=== PATIENT | male | born 1980 | race Caucasian/White ===

== ENCOUNTER 2017-12-21 15:53 | Emergency (ER) | payer OTHER, SELFPAY ==
[2017-12-21 15:54] VITALS: BP 128/88; PULSE 65; RESP 17; TEMP 37.1; O2SAT 99; BMI 33.0
--- NOTE | 2017-12-21 16:25 | ED.DCSUM_ITS ---
- ER Visit Summary Date of Service: 12/21/17 Chief Complaint: Left fifth digit laceration History of Present Illness: The patient is a 37 M [id number], circular saw injury to left fifth digit 1 hour prior to arrival. Tetanus unknown, no anticoagulation medications. No paresthesias. Bleeding was controlled prior to arrival. No past medical history. Physical Examination: General: Alert and oriented ?3, no acute distress HEENT: Normocephalic, atraumatic. Moist mucosa membranes Neck: supple, nontender. Cardiovascular: Regular rate and rhythm, no murmurs Respiratory: Normal breath sounds, symmetric, no distress Abdomen: Soft, nontender, nondistended Extremities: Left fifth digit: 3.5 cm linear laceration across the PIP and dorsal middle phalanx of the pinky finger. Neuro: no focal neurological deficits. Test Results: Left fifth finger x-ray: No bony involvement. Emergency Department Course and Treatment: X-ray negative. Tetanus updated. Patient's laceration was pared in sterile conditions. I did use a Tourni-cot after numbing, thorough evaluation of the wound, did note subcutaneous injury, the extensor tendon was visualized, there is no injuries through range of motion. Stents are mechanism is intact. Total of 2 horizontal sutures and 2 simple fibrosis sutures were placed. AlumaFoam splint was placed by nursing. Patient will follow-up as an outpatient for suture removal. Wound care discussed. Treatment Plan: [] Disposition: Discharge Impression: 1. Left fifth digit laceration 3.5 cm 2. Tetanus update This note was generated with [employer] dictation software. It may contain incorrect words, spelling, and punctuation that were not noted in review of the chart prior to signing ED Disposition - Plan for ED Patient: Disposition: Home or Assisted Living Chief Complaint: Laceration Diagnosis: Finger laceration Instructions: ED Laceration Hand Referrals: Care Physician,No Primary [Primary Care Provider] - Makeda Cheek [NON-STAFF] - 10-14 Days suture removal
[2017-12-21] MEDS: Diphth,Pertuss(Acell),Tet Vac 0.5 ML Vial IM (16:33)
--- NOTE | 2017-12-21 16:45 | RAD_ITS ---
STUDY: X-RAY - LEFT HAND, ATTENTION PINKY FINGER REASON FOR EXAM: Male, 37 years old. Evaluation of laceration of the left pinky finger. TECHNIQUE: 3 view(s) of the finger were obtained. COMPARISON: None. FINDINGS: Normal metacarpal head. Normal metacarpophalangeal joint. Normal proximal phalanx. Normal middle phalanx. Normal distal phalanx. Normal proximal interphalangeal joint. There is mild degenerative arthrosis of the distal interphalangeal joint. There appears to be sequela of a chip fracture arising from the tuft of the distal phalanx of the ring finger. This is probably not acute. RAD/Finger(s) Min 2 Views IMPRESSION: No radiographic evidence for acute fracture. If there is still clinical concern for acute fracture, follow-up radiographs in 7-10 days maybe helpful in evaluating a healing radiographically occult fracture. Electronically Signed: Saima Whitfield MD at 17:05 EST , Service support ,
[2017-12-21] MEDS: Bupivacaine 0.25% 30 ML Vial INFILT (17:35)
[2017-12-21 18:05] VITALS: BP 138/59; PULSE 64; RESP 15; O2SAT 97
== END 2017-12-21 18:06 | disposition home or self-care (01) ==
PROVIDERS: Emergency Provider Emergency Medicine
DX: S61.217A Laceration without foreign body of left little finger without damage to nail, initial encounter (principal); Z23 Encounter for immunization; W29.3XXA Contact with powered garden and outdoor hand tools and machinery, initial encounter; Y93.89 Activity, other specified; Y92.89 Other specified places as the place of occurrence of the external cause; Y99.8 Other external cause status
CPT/HCPCS: 12002; 73140; 90471; 90715; 99283

== ENCOUNTER → 2020-06-24 | Outpatient (CLI) | payer OTHER, SELFPAY | END | disposition home or self-care (01) | LOC: MTDU 17:25 | PROVIDERS: Referring Provider Nurse Practitioner Family; Visit Provider Nurse Practitioner Family | DX: Z20.828 Contact with and (suspected) exposure to other viral communicable diseases (principal) | CPT/HCPCS: 87635; 94799; U0003 ==

== ENCOUNTER 2022-10-18 12:37 | Emergency (ER) | payer OTHER, SELFPAY ==
[2022-10-18 12:38] VITALS: BP 160/94; PULSE 126; RESP 18; TEMP 35.9; O2SAT 96; BMI 31.5
--- NOTE | 2022-10-18 12:48 | EX.ED.DYSGE1 ---
HPI History of Present Illness Chief Complaint: Cough Informant: patient Onset/Context/Timing Onset: Days Context: Gradual Onset Current Severity: Moderate Maximum Severity: Moderate Narrative Narrative: Patient presents secondary to cough and URI symptoms. Patient reported got sick about 10 days ago when her daughter became ill. Over the past 3 days has gotten significantly worse. He has had subjective fever and chills at home. He has chest congestion but is not producing any sputum with his cough. He has not taken anything for his cough. PFSH PFSH Medical History no medical history no medical history Home Medications dicyclomine 10 mg capsule 20 mg PO TIDAC ##20 10/27/15 [Rx Last Taken Unknown] codeine 10 mg-guaifenesin 100 mg/5 mL oral liquid (Guaifenesin AC) 10 ml PO Q6H PRN cough #200 mL 10/18/22 [Rx Last Taken Unknown] Allergy/AdvReac Type Severity Reaction Status Date / Time No Known Allergies Allergy Verified 10/18/22 12:38 Surgical History no surgical history no surgical history Social History Smoking Status: Never smoker ROS ROS ED Constitutional Constitutional ED: Reports chills, fever(s) and subjective Eyes Eyes: Denies change in vision or discharge from eye(s) ENT ENT ED: Denies discharge from eye(s), rhinorrhea or sore throat Cardiovascular Cardiovascular: Denies chest pain or palpitations Respiratory/Chest Respiratory/Chest: Reports cough and dyspnea; Denies sputum Gastrointestinal Gastrointestinal: Denies abdominal pain, diarrhea, nausea or vomiting Genitourinary Genitourinary ED: Denies dysuria Musculoskeletal Musculoskeletal: Denies back pain or extremity pain Integumentary Denies Abrasions or rash Neurologic Neurologic: Denies headache(s) or weakness Psychiatric Psychiatric: Denies anxiety or depression Allergic/Immunologic Allergic/Immunologic ED: Denies lip swelling or urticaria EXAM Physical Exam Const Vital Signs: 10/18/22 12:38 Temperature 96.6 F L Temperature Source Temporal Pulse Rate 126 H Respiratory Rate 18 Blood Pressure 160/94 H Blood Pressure Mean 116 Pulse Ox 96 Oxygen Delivery Method Room Air Positive well nourished and well developed General Appearance ED: well developed HEENT Reports normocephalic and head/scalp atraumatic Eyes PERRL and EOMs intact bilaterally Neck supple Chest Wall inspection of chest normal and palpation of chest normal Resp normal respiratory effort and clear to auscultation bilaterally Cardio regular rate and regular rhythm GI non-tender Palpation: soft Extremity normal to inspection Neuro oriented x3 and no sensory deficits noted Sensorium / Orientation: alert Motor Exam: strength 5/5 throughout Psych mental status grossly normal Skin no rashes or lesions noted MDM MDM MDM Narrative Medical decision making narrative: Patient was given a dose of Robitussin-AC. Two-view chest x-ray obtained along with swab for COVID and influenza. Radiography Diagnostic Testing: Clinical Impression(s) from Imaging Studies Chest X-Ray 10/18/22 13:14 IMPRESSION: Normal x-ray examination of the chest. Electronically Signed: Dorian Mcleod MD at 13:35 EST , Treatment and Re-Evaluation Narrative: Chest x-ray per my interpretation reveals no focal infiltrate. Radiology interpretation is reviewed and agrees. Swab for COVID and influenza is negative. On repeat evaluation heart rate is 108 and pulse ox is 94% on room air. Patient does feel his cough is improved with the Robitussin. Prescription will be provided. He will continue supportive care. Discharge Plan Triage Chief Complaint: Cough ED Provider: Carol Hernandes Dx/Rx/DC Orders Clinical Impression: Viral URI with cough Instructions: ED Bronchitis, No Antibiotic (Adult) Prescriptions: New codeine-guaifenesin [Guaifenesin AC] 10-100 mg/5 mL liquid 10 ml PO Q6H PRN (Reason: cough) Qty: 200 0RF No Action dicyclomine 10 MG capsule 20 mg PO TIDAC Qty: 20 0RF Rx Instructions: causes drowsiness Primary Care Provider: Care Physician,No Primary Referrals: Vilma Ulloa MD [Med Staff - [facility]] - As Needed Care Physician,No Primary [Primary Care Provider] - Disposition Disposition: Home, Self Care
[2022-10-18] MEDS: guaiFENesin/Codeine 5 ML UDC 10 ML PO (13:07)
--- NOTE | 2022-10-18 13:14 | RAD_ITS ---
STUDY: X-RAY CHEST REASON FOR EXAM: Male, 41 years old. cough TECHNIQUE: PA and lateral views of the chest. COMPARISON: None. FINDINGS: The lungs are clear and expanded. There is no demonstrated pleural abnormality. Normal size heart. Normal mediastinum and tico. Normal visualized pulmonary arteries. Normal visualized aortic arch and descending thoracic aorta. Normal visualized thoracic spine. Normal visualized ribs, clavicles, and shoulders. There is no demonstrated abnormality of the visualized soft tissue structures of the upper abdomen. RAD/Chest PA and Lateral IMPRESSION: Normal x-ray examination of the chest. Electronically Signed: Dorian Mcleod MD at 13:35 EST ,
== END 2022-10-18 14:02 | disposition home or self-care (01) ==
PROVIDERS: Emergency Provider Emergency Medicine; Visit Provider Emergency Medicine
DX: J06.9 Acute upper respiratory infection, unspecified (principal); Z20.822 Contact with and (suspected) exposure to COVID-19
CPT/HCPCS: 71046; 87428; 99283

== ENCOUNTER 2024-01-10 10:12 | Emergency (ER) | payer OTHER, SELFPAY ==
[2024-01-10 10:13] VITALS: BP 111/78; PULSE 101; RESP 22; TEMP 36.6; O2SAT 94; BMI 34.3
--- NOTE | 2024-01-10 10:22 | EKG12_ITS ---
Test Reason : SOB Blood Pressure : / mmHG Vent. Rate : 086 BPM Atrial Rate : 086 BPM P-R Int : 136 ms QRS Dur : 084 ms QT Int : 394 ms P-R-T Axes : 038 -05 015 degrees QTc Int : 471 ms Normal sinus rhythm Normal ECG Confirmed by CHARLY LAU, JORY ([id number]), news videotape editor SPARKLE MICHEL ([id number]) on 01/11/2024 7:57:50 AM Referred By: Confirmed By:JORY PARKS MD
--- NOTE | 2024-01-10 10:23 | EDS_ITS ---
HPI History of Present Illness Chief Complaint: Allergic Reaction Detail of Chief Complaint: Concern for allergic reaction Informant: patient Narrative Narrative: Patient presents to the emergency department with complaint of vomiting and d iarrhea and a rash that started while at work today. Patient states that he woke up feeling fine. Relatively sudden onset of feeling like he was going to pass out. Developed chills and sweats suddenly and started vomiting. He also developed diarrhea. His was sick 3 days ago with vomiting for about 6 hours that then resolved. Patient describing sensation like having a hard time breathing. Denies significant chest pain or abdominal pain. Denies urinary symptoms. PFSH PFSH Home Medications dicyclomine 10 mg capsule 20 mg (2 x 10 mg) PO TIDAC ##20 10/27/15 [Rx Last Taken Unknown] codeine 10 mg-guaifenesin 100 mg/5 mL oral liquid (Guaifenesin AC) 10 ml PO Q6H PRN cough #200 mL 10/18/22 [Rx Last Taken Unknown] ondansetron 4 mg disintegrating tablet 4 mg PO Q8H PRN PRN Nausea #10 tabs 01/10/24 [Rx Last Taken Unknown] Allergy/AdvReac Type Severity Reaction Status Date / Time No Known Allergies Allergy Verified 01/10/24 10:15 Social History Smoking Status: Never smoker ROS ROS ED ROS Narrative Near syncope Review of Systems ROS Unobtainable: other Constitutional Constitutional ED: Reports chills, lethargy and sweats; Denies fever(s) or weight loss Eyes Eyes: Denies blurry vision, change in vision or diplopia ENT ENT ED: Denies rhinorrhea or sore throat Cardiovascular Cardiovascular: Reports chest pain and racing heartbeat; Denies orthopnea Respiratory/Chest Respiratory/Chest: Reports dyspnea and dyspnea on exertion; Denies cough, orthopnea or sputum Gastrointestinal Gastrointestinal: Reports diarrhea, nausea and vomiting; Denies abdominal pain Genitourinary Genitourinary ED: Denies dysuria, hematuria or urinary frequency Musculoskeletal Musculoskeletal: Denies arthralgias, back pain, myalgias or neck pain Integumentary Denies abscess, Abrasions or rash Neurologic Neurologic: Denies headache(s) or weakness Psychiatric Psychiatric: Denies anxiety, depression or suicidal thoughts Endocrine Endocrinology: Denies polydipsia, polyphagia or polyuria Hematologic/Lymphatic Hematologic/Lymphatic: Denies easy bleeding, easy bruising or lymphadenopathy Allergic/Immunologic Allergic/Immunologic ED: Denies mouth swelling, tongue swelling or urticaria EXAM Physical Exam Const Vital Signs: 01/10/24 10:13 01/10/24 11:00 01/10/24 12:00 Temperature 97.8 F Temperature Source Temporal Pulse Rate 101 H 91 87 Respiratory Rate 22 H 16 20 H Blood Pressure 111/78 121/97 H 147/125 H Blood Pressure Mean 89 106 134 Pulse Ox 94 95 98 Oxygen Delivery Method Room Air Room Air Room Air Positive well nourished and well developed General Appearance ED: well developed and NAD HEENT Reports TM's clear and moist mucous membranes normocephalic and atraumatic; Negative for trauma or tenderness Tympanic Membrane ED: Yes TM's clear Eyes PERRL and EOMs intact bilaterally General Eye ED: Negative for pale conjunctiva or scleral icterus Neck no lymphadenopathy, supple and no JVD General: Negative for tenderness Chest Wall inspection of chest normal and palpation of chest normal Chest: Negative for tenderness Resp normal respiratory effort and clear to auscultation bilaterally Effort and Inspection: Negative for respiratory distress or pain with movement Auscultation: Negative for rhonchi, wheezes or diminished lung sounds Cardio regular rate, regular rhythm, S1 normal heart sound, S2 normal heart sound and no murmurs Peripheral Pulses: pulses 2+ throughout GI normal to inspection, nondistended, normoactive bowel sounds, soft to palpation, non-tender, non-distended and no masses Back/Spine no CVA tenderness and no thoracic nor lumbar tenderness Extremity normal to inspection General Extremety ED: Negative for edema General Extremity: Negative for edema Neuro oriented x3, CN's II-XII intact bilaterally, no sensory deficits noted and gait normal Sensorium / Orientation: awake, alert, oriented to person, oriented to place and oriented to time Motor Exam: strength 5/5 throughout and strength abnormal Psych mental status grossly normal Skin no wounds Skin Narrative: Patient with fine erythematous rash that is diffuse throughout the body. Minimally pruritic. Fine erythematous and slightly raised. Suspect viral pattern. MDM MDM MDM Narrative Medical decision making narrative: Patient presents with sudden onset of vomiting and diarrhea as well as chills. Symptoms started while at work. He became pale and felt like he was going to pass out. He denies chest pain or recent illness otherwise. Denies sick contacts. IV line established on arrival. Patient was medicated with Zofran and given a liter of ascitic fluid bolus. CBC with differential obtained showed a white count of 18.5 which I suspect is likely reactive from retching and vomiting. Hemoglobin 17.8 and platelet count was 259. Chemistries were unremarkable other than an elevated BUN of 13 and creatinine of 1.47. His blood glucose was elevated at 333. Patient is not a known diabetic. His AST is 53 and his ALT 79. Troponin was normal at 9. Alcohol was negative. COVID flu RSV testing was negative. This point he had no further vomiting and clinically feels significant improved. I suspect likely viral gastroenteritis as etiology of his symptoms. Advised him to follow-up with Dr. Azul regarding his elevated blood glucose to have formal testing for diabetes type 2. Patient advised to push fluids. I will write him a prescription for Zofran. Advised to use Imodium as needed for the diarrhea. Patient to return if persistent vomiting, diarrhea, dehydration, abdominal pain, or condition should worsen anyway. Lab Data Attestation: I reviewed the patient's lab results. Labs: Laboratory Results - last 24 hr 01/10/24 10:30 WBC 18.5 H RBC 5.69 Hgb 17.8 H Hct 53.3 MCV 93.7 MCH 31.3 MCHC 33.4 RDW Std Deviation 41.3 RDW Coeff of Isaiah 11.9 Plt Count 259 MPV 10.2 Immature Gran % (Auto) 0.900 Neut % (Auto) 86.2 H Lymph % (Auto) 7.7 L [place] % (Auto) 4.4 Eos % (Auto) 0.2 Baso % (Auto) 0.6 Absolute Neuts (auto) 16.0 H Absolute Lymphs (auto) 1.43 Nucleated RBC % 0 Sodium 132 L Potassium 5.2 H Chloride 99 Carbon Dioxide 22.0 Anion Gap 11 BUN 13 Creatinine 1.47 H Estim Creat Clear Calc 79.11 Est GFR (MDRD) Af Amer 67 Est GFR (MDRD) Non-Af 55 L BUN/Creatinine Ratio 8.8 L Glucose 333 H Calcium 8.8 Total Bilirubin 0.70 AST 53 H ALT 79 H Alkaline Phosphatase 92 Troponin I High Sens 9 Total Protein 7.7 Albumin 3.5 Globulin 4.2 Albumin/Globulin Ratio 0.8 L Ethyl Alcohol < 3.0 EKG Initial EKG: Attestation: I personally reviewed and interpreted this EKG as follows: Comments: Sinus rhythm with rate of 86 bpm with no acute ST segment changes Discharge Plan Triage Chief Complaint: Allergic Reaction ED Provider: Linda Mcdonald Dx/Rx/DC Orders Clinical Impression: Viral gastroenteritis, Hyperglycemia, Vaso-vagal reaction Instructions: ED Fainting, Vagal Reaction, ED Gastroenteritis, Viral (Adult), ED Hyperglycemia New Poss Diabetes Prescriptions: New ondansetron [ondansetron] 4 mg tablet,disintegrating 4 mg PO Q8H PRN PRN (Reason: Nausea) Qty: 10 0RF No Action dicyclomine 10 MG capsule 20 mg PO TIDAC Qty: 20 0RF Rx Instructions: causes drowsiness codeine-guaifenesin [Guaifenesin AC] 10-100 mg/5 mL liquid 10 ml PO Q6H PRN (Reason: cough) Qty: 200 0RF Primary Care Provider: Lorenzo Azul Referrals: Care Physician,No Primary [Non-Staff] - Activity Restrictions/Additional Instructions: Follow-up with Dr. Azul regarding elevated blood sugars to evaluate for diabetes type 2. Disposition Disposition: Home, Self Care
--- NOTE | 2024-01-10 10:26 | NURSING ---
NO OLD EKGS
[2024-01-10 10:42] LABS: Absolute Lymphocyte Count 1.43 X10^3/uL (0.83-4.51); Basophil# 0.11 X10^3/uL; Basophil% 0.6 % (0-1); Eosinophil# 0.04 X10^3/uL; Eosinophils% 0.2 % (0-5); Hematocrit 53.3 % (40-54); Hemoglobin 17.8 g/dL (13.0-16.5); Lymphocyte # 1.43 X10^3/ul (0.83-4.51); Lymphocyte % 7.7 % (19-41); Mean Corp Hgb Conc 33.4 g/dL (32-36); Mean Corpuscular Hgb 31.3 pg (27.0-32.0); Mean Corpuscular Volume 93.7 fL (80-94); Mean Platelet Vol. 10.2 fl (6.2-12.0); Monocyte# 0.82 X10^3/uL; Monocyte% 4.4 % (0-10); NRBC Flagged by Analyzer 0 % (0-5); Neutrophil # 15.97 X10^3/uL (2.7-7.7); Neutrophil % 86.2 % (47-70); Platelet Count 259 K/mm3 (150-450); RBC Distribution Width CV 11.9 % (11.6-14.6); RBC Distribution Width SD 41.3 fl (35.1-43.9); Red Blood Count 5.69 M/mm3 (4.6-6.2); White Blood Count 18.5 K/mm3 (4.4-11.0)
[2024-01-10 10:49] LABS: Alcohol, Blood (Medical)-Serum < 3.0 mg/dL
[2024-01-10] MEDS: 0.9% Normal Saline (1000mL) 1,000 ML 1000 ML IV (10:54)
[2024-01-10] MEDS: Ondansetron 4 MG/2 ML Vial IV (10:54)
[2024-01-10 10:57] LABS: ALB/GLOB Ratio 0.8 RATIO (0.9-2.4); AST(SGOT) 53 U/L (15-37); Alanine Aminotransfer ALT/SGPT 79 U/L (16-61); Albumin, Serum 3.5 g/dL (3.2-5.0); Alkaline Phosphatase 92 U/L (45-117); Anion Gap 11 (5-15); BUN 13 mg/dL (7-18); BUN/Creat Ratio 8.8 RATIO (10-20); Calcium,Total 8.8 mg/dL (8.5-10.1); Chloride 99 mmol/L (98-107); Creatinine, Serum 1.47 mg/dL (0.70-1.30); EST Glomerular Filtration Rate 55 mL/min (>60); Est Glom Filt Rate - Afr Amer 67 mL/min (>60); Estimated Creatinine Clearance 79.11 ml/min; Globulin 4.2 g/dL (2.2-4.2); Glucose 333 mg/dL (74-106); Potassium 5.2 mmol/L (3.5-5.1); Protein, Total 7.7 g/dL (6.4-8.2); Sodium Level 132 mmol/L (136-145); Troponin-I HS 9 pg/mL (3.0-78.0)
[2024-01-10 11:00] VITALS: BP 121/97; PULSE 91; RESP 16; O2SAT 95
[2024-01-10 12:00] VITALS: BP 147/125; PULSE 87; RESP 20; O2SAT 98
[2024-01-10 12:33] VITALS: BP 125/84; PULSE 81; RESP 17; TEMP 36.8; O2SAT 96
== END 2024-01-10 12:40 | disposition home or self-care (01) ==
PROVIDERS: Emergency Provider Emergency Medicine; PCP Student in an Organized Health Care Education/Training Program; Visit Provider Emergency Medicine
DX: A08.4 Viral intestinal infection, unspecified (principal); R73.9 Hyperglycemia, unspecified; R18.8 Other ascites; R55 Syncope and collapse
CPT/HCPCS: 80053; 80320; 84484; 85025; 87631; 93005; 96361; 96374; 99284; J7030; A4216; G0480; J2405